=== PATIENT | male | born 1955 | race Caucasian/White ===

== ENCOUNTER → 2016-06-27 | Outpatient (CLI) | payer BC ==
[~2016-06-27] MED LIST: ASPI81TA28 PO; ATOR10TA88 PO; B-COCAP2 PO; CHOL100010 PO; COEN50CA2 PO; ESOM20CA PO; HYDR-5688 PO; LISI-461 PO; MULT-506 PO; NXM/40 PO; OMEG10007 PO; VITACAP37 PO; ZNTT/150 PO
== END | disposition home or self-care (01) ==
LOC: C.RDSM 11:02
PROVIDERS: ATTEND Physical Medicine & Rehabilitation Sports Medicine
DX: M25.521 Pain in right elbow (principal)

== ENCOUNTER → 2016-07-26 | Outpatient (CLI) | payer BC ==
[~2016-07-26] MED LIST changes: +ATOR10TA82 PO; -ATOR10TA88 PO
== END | disposition home or self-care (01) ==
LOC: C.RDSM 12:30
PROVIDERS: ATTEND Physical Medicine & Rehabilitation Sports Medicine
DX: R22.32 Localized swelling, mass and lump, left upper limb (principal)

== ENCOUNTER → 2016-08-09 | Outpatient (CLI) | payer BC ==
[~2016-08-09] MED LIST changes: -B-COCAP2 PO; -CHOL100010 PO; -ESOM20CA PO; -VITACAP37 PO
== END | disposition home or self-care (01) ==
LOC: C.CPL 14:52
PROVIDERS: ATTEND Physician Assistant
DX: G56.21 Lesion of ulnar nerve, right upper limb (principal)

== ENCOUNTER → 2016-08-16 | Outpatient (CLI) | payer BC ==
[2016-08-19 23:32] LABS: IGA SERUM 189 mg/dL (81-463); TIS TRANS IGA 1 U/mL (<4)
== END | disposition home or self-care (01) ==
LOC: C.LAB1850 16:19
PROVIDERS: ATTEND Registered Nurse
DX: K21.9 Gastro-esophageal reflux disease without esophagitis (principal)

== ENCOUNTER → 2016-08-24 | Day surgery (SDC) | payer BC ==
[2016-08-01 11:49] VITALS: Ht 175.3 cm; Wt 88.6 kg
[~2016-08-24] VITALS: Ht 175.3 cm; Wt 88.6 kg
[~2016-08-24] MED LIST changes: +ATROPINE SULFATE 0.1 MG/ML 5ML SYR IV PRN; +BUPIVACAINE/EPINEPHRINE 0.5% MPF 1:200,000 30 ML VIAL ONE; +CEFAZOLIN 2000 MG/60 ML D5W IV SCH; +EpHEDrine SULFATE 50MG/5ML SYR ONE; +EpHEDrine SULFATE INJ 50 MG/ML AMP IV PRN; +FENTANYL CITRATE INJ 50 MCG/1 ML 2 ML VIAL IV PRN; +FENTANYL CITRATE INJ 50 MCG/1 ML 2 ML VIAL ONE; +FLUMAZENIL 0.1 MG/1 ML 10 ML VIAL IV PRN; +HYDROmorphone INJ 2 MG/ML SYR/VIAL IV PRN; +LABETALOL HCL IV 5 MG/ML 20ML IV PRN; +LACTATED RINGER'S 1000ML 1,000 ML IV SCH; +LIDOCAINE HCL 2% 2 ML VIAL (20MG/ML) ONE; +LIDOCAINE/EPINEPHRINE 1% INJ 50 ML VIAL ONE; +MEPERIDINE HCL 25 MG/ML CARP IV PRN; +MIDAZOLAM HCL 1 MG/ML 2ML VIAL ONE; +MoRPHine SULFATE 2 MG/ML CARP IV PRN; +NALOXONE HCL 0.4 MG/1 ML VIAL/CARP IV PRN; +ONDANSETRON INJ 2 MG/ML 2 ML VIAL IV PRN; +ONDANSETRON INJ 2 MG/ML 2 ML VIAL ONE; +OXYCODONE/ACETAMINOPHEN 5-325 TAB PO PRN; +PHENYLEPHRINE 100MCG/ML 5ML SYR IV PRN; +PROPOFOL IV EMULSION 10 MG/ML 20 ML VIAL IV ONE; +SODIUM CHLORIDE 0.9% 1000ML 1,000 ML IV SCH
--- NOTE | 2016-08-24 12:40 | History & Physical Bridge Note ---
H&P Re-Evaluation Bridge Note: I have examined the patient, reviewed the History & Physical and in the interval since the performance of the History & Physical I have noted the following changes of clinical significance: No changes noted
--- NOTE | 2016-08-24 13:44 | Discharge Instructions-SurgCtr ---
Discharge Instructions Date of Service August 24, 2016. Visit Reason for Visit: Right Cubital Tunnel Syndrome Discharge Discharge Diagnosis / Problem: cubital tunnel syndrome right arm Discharge Goals Goal(s): Decrease discomfort, Improve function, Increase independence Activity Recommendations Activity Limitations: per Instructions/Follow-up section Anesthesia . Post Anesthesia Instructions: If you have had General Anesthesia or IV Sedation: * Do not drive today. * Resume driving when surgeon permits. * Do not make important decisions or sign legal documents today. * Call surgeon for: 1. Temperature elevations greater than 101 degrees F. 2. Uncontrollable pain. 3. Excessive bleeding. 4. Persistent nausea and vomiting. 5. Medication intolerance (nausea, vomiting or rash). * For nausea and vomiting use only clear liquids such as: tea, soda, bouillon until nausea subsides, then gradually increase diet as tolerated. * If you have any concerns or questions, call your surgeon's office. If physician is unavailable and it is an emergency, call 911 or go to the nearest emergency room. . Instructions / Follow-Up Instructions / Follow-Up The following are instructions to follow after minor hand surgery. ACTIVITY RECOMMENDATIONS: * Minimize activity until your first visit after surgery. * No excessive walking, jogging, sports or laboring. * Return to activity is individualized. Most patients are able to return to everyday activities within 2 weeks. * Return to sports or intensive labor usually occurs at 1-2 months. * DRIVING: No driving until instructed by physician. * BATHING: You may shower or sponge-bathe immediately after surgery. The dressing will need to be covered with a plastic bag or plastic wrap until the dressing is changed on the fourth or fifth day after surgery. Once the dressing has been changed on the fourth or fifth day after surgery, you may shower and get the incision wet. * Wash with regular soap and water. * Do not bathe (submerge the incision), soak, swim or use a hot tub until the incision is completely healed over with normal skin and the doctor has given the OK to proceed. * There is no need to apply any ointments, powders or salves to your incision. * Do not apply alcohol or hydrogen peroxide directly to the incision. Diluted peroxide (50:50 mixture with sterile saline) may be used to clean dried blood from around the incision area. WORK/SCHOOL: * You may return to sedentary work or school when you are feeling comfortable. This is usually 3-7 days after surgery. * Expect increased discomfort with increased activity. Continue to elevate and ice the hand as much as possible. DIET: * Resume previous diet. MEDICATIONS: * You will have a prescription for pain medication and an anti-inflammatory medication after surgery. Use the pain pills for severe pain and the anti-inflammatory for less severe pain. * Once the pain pills have run out, try to use the anti-inflammatory. If this is not effective then contact the office for assistance. * The pain medication may cause nausea, constipation and sleepiness. You should see how they affect you before driving or similar activity. * The anti-inflammatory may cause stomach upset and bleeding. If this occurs, let your doctor know immediately . * Some patients may need blood clot prevention. This can be done with either a pill or a simple shot. Your doctor will advise you on when to begin these medications and how to take them. * Do not take aspirin or other anti-inflammatory products (i.e. Advil or Aleve ) if taking blood thinner medication. * Take a stool softener like Colace or a stimulant like Senokot to prevent constipation. SPECIAL CARE INSTRUCTIONS: ICE: * Do not apply ice directly to the skin. * Use a thin dressing or stockinet between the skin and ice bag. The dressing in place after surgery will suffice. * Apply ice for 20-30 minutes and repeat every 2-4 hours. This is especially important for the first 3-7 days after surgery. * Once the pain improves, use ice as needed. ELEVATION: * Keep your hand elevated at or above the level of your heart as much as possible. * Expect some increased discomfort and swelling if you allow your hand to hang down for any length of time. DRESSING: * Your dressing will be changed 4-5 days after surgery by the physical therapist or physician's sales and marketing assistant. Leave your dressing intact until this time. * You may then change your dressing daily with clean dry gauze or Band-aids and a soft wrap or stockinet. * Always wash your hands prior to touching the incision area. * Once the stitches are removed, you may leave the wound open to air or cover with a thin bandage. * There is no need to apply any ointments, powders or salves to your incision. * Expect some bloody drainage for the first few days after surgery. * Leave the tape strips in place (if present) for 5-7 days. * The initial dressing after surgery may become soaked with blood or fluid which is normal. You may reinforce your dressing with clean, dry gauze as needed. * Wear sling right arm for comfort. * If you have a splint do not remove splint until your follow up appointment. THERAPY: * Physical therapy may be prescribed after your surgery. * For cubital tunnel surgery you may begin moving your fingers and wrist immediately after surgery as tolerated. * Be careful to not overuse. * Once the sutures are removed, further range of motion exercises can be performed. * Hand incisions may be very sensitive for a few months after surgery so avoid excessive pressure on the incision. If necessary, use a padded weightlifters' glove. * You may massage the incision with skin cream to make it less sensitive and reduce scarring. * Hand strength usually returns with normal use. * If needed, squeezing a soft sponge or Play-dough may help. * Your doctor will recommend physical therapy if necessary. PROBLEMS/QUESTIONS: * If you have any problems such as severe pain, numbness, tingling or high fevers or if you have any questions, please contact the office at [phone]. * It is not uncommon to have some numbness and tingling after the surgery especially if you have had a nerve block done. This should gradually improve over the first 1- 2 days. If this persists longer or worsens then contact the office. FOLLOW UP VISIT: * If not already scheduled, please call the office at to schedule follow-up appointments for approximately 10 days, 6 weeks and 3 months after surgery. You have a physical therapy appointment on 08/28/16 at 10:30 a.m. You have a follow up appointment with Dr. Rocha on 09/08/16 at 10:15 a.m. Diet Recommendations Home Diet: no limitations, resume previous diet Procedures Procedures Performed: Right Ulnar Nerve Subcutaneous Transposition Pending Studies Studies pending at discharge: no Medical Emergencies . Who to Call and When: Medical Emergencies: If at any time you feel your situation is an emergency, please call 911 immediately. . Non-Emergent Contact Non-Emergency issues call your: Surgeon Call Non-Emergent contact if: temperature is above 101, your pain is not controlled, your pain is concerning you, wound has increased drainage, you have any medication questions . . "Provider Documentation" section prepared by Vanessa Rios. . [place] Drug Monitoring Program Search Results: patient reviewed within database, no issues identified
--- NOTE | 2016-08-24 14:03 | [facility] Post Operative Brief Note ---
Immediate Operative Summary Operative Date August 24, 2016. Pre-Operative Diagnosis Right Cubital Tunnel Syndrome Post-Operative Diagnosis same Procedure(s) Performed Right Ulnar Nerve Subcutaneous Transposition Surgeon Dr. Sharan Rocha Hogshead Press Operator Surgeon(s) Dr. Pietro Hamilton Estimated Blood Loss 5 ML Findings tight bands at cubital tunnel Specimens 0 Drains 0 Anesthesia LMA Complication(s) None Disposition Recovery Room / PACU
--- NOTE | 2016-08-24 14:32 | Anesthesia Progress Nt - [facility] ---
Anesthesia Post Op Note Date & Time August 24, 2016 at 14:32 Vital Signs Pain Intensity: 0 Vital Signs Past 12 Hours Date Time Temp Pulse Resp B/P Pulse Ox O2 Delivery O2 Flow Rate FiO2 08/24/16 14:31 36.6 08/24/16 14:28 78 20 08/24/16 14:28 79 20 94 08/24/16 14:27 81 17 98 08/24/16 14:27 79 17 08/24/16 14:26 150/87 08/24/16 14:22 76 14 99 08/24/16 14:22 74 14 08/24/16 14:21 149/82 08/24/16 14:19 78 18 08/24/16 14:19 78 18 98 08/24/16 14:16 143/93 08/24/16 14:14 36.1 89 16 152/98 97 Mask 8 08/24/16 10:01 36.6 81 16 144/91 96 Room Air Notes Mental Status: alert / awake / arousable, participated in evaluation Pt Amnestic to Procedure: Yes Nausea / Vomiting: adequately controlled Pain: adequately controlled Airway Patency, RR, SpO2: stable & adequate BP & HR: stable & adequate Hydration State: stable & adequate Anesthetic Complications: no major complications apparent
[2016-08-24 14:45] VITALS: TEMP 36.4
[2016-08-24 15:16] VITALS: BP 121/76; O2SAT 98
--- NOTE | 2016-08-24 15:19 | [facility] Operative Report ---
Operative Report Operative Date August 24, 2016. Pre-Operative Diagnosis Right Cubital Tunnel Syndrome Post-Operative Diagnosis Right cubital tunnel syndrome Procedure(s) Performed Right submuscular ulnar nerve transposition Surgeon Dr. Sharan [facility] T[facility] Surgeon(s) Pietro Seymour PA-C Estimated Blood Loss 5 ML Findings cubital tunnel syndrome right elbow Specimens 0 Drains 0 Anesthesia LMA Complication(s) None Disposition Recovery Room / PACU (stable) Indications Patient is a 61 year old male with complaints of paresthesias right hand, failed conservative treatment. x-rays normal. EMG/NCS obtained, found to have cubital tunnel syndrome right upper extremity. Surgery recommended. He wished to proceed, risks/complications discussed, informed consent obtained. Description of Procedure Patient was taken to the operating room, given general anesthesia. He was given IV Ancef for surgical prophylaxis. Time out performed, prepped and draped in routine sterile fashion. I was present the entire case, please see Dr. Rocha's operative report for further detail. I attest to the content of the Intraoperative Record and any orders documented therein. Any exceptions are noted below.
--- NOTE | 2016-08-24 15:55 | OPERATIVE REPORT ---
DATE OF OPERATION: 08/24/2016 PREOPERATIVE DIAGNOSIS: Right cubital tunnel syndrome. POSTOPERATIVE DIAGNOSIS: Same. PROCEDURE: Subcutaneous transposition of the right ulnar nerve. SURGEON: Vasyl Rocha MD ADMINISTRATIVE EXECUTIVE: Fito Keenan MD ANESTHESIA: Laryngeal mask. INDICATIONS OF PROCEDURE: The patient is a 61-year-old male with signs and symptoms of cubital tunnel syndrome refractory to nonsurgical methods of management and he has elected to proceed with operative intervention. PROCEDURE IN DETAIL: Informed consent was obtained. The patient identified as Tate Childs. He identified the operative site as the right elbow. I marked it with my initials. A preop surgical time-out was performed. A preop dose of IV antibiotics was given. He was positioned supine on the OR table with the right arm on a hand table. Tourniquet was applied to the right upper arm. The limb was prepped and draped in usual sterile fashion. DVT prophylaxis will be done with early mobility and intraoperatively with foot pumps. The examination under anesthesia revealed full range of motion except for 10-15 degree loss of terminal elbow extension. The right arm was prepped and draped in usual sterile fashion. The limb was exsanguinated with the Esmarch, tourniquet inflated to 225 mmHg. Approximate 12-15 cm incision was made just posterior to the medial epicondyle and centered over it. This skin was sharply incised. Blunt dissection was utilized down to subcutaneous tissue. A large branch of the medial antebrachial cutaneous nerve was identified and protected. The ulnar nerve was identified and dissected free throughout its course. There were several tight adhesive bands over the cubital tunnel. There were no constrictions of the nerve. The vessels were transposed with the nerve. The motor branches distal to the epicondyle were identified and preserved. There was no entrapment proximally for a distance of at least 10-12 cm by digital palpation. The medial intermuscular septum was excised. The nerve was then transposed anteriorly and a fascial flap was created and sewn in place with 2-0 Vicryl sutures taking care to avoid the cutaneous nerves. The elbow showed full range of motion without any kinking or subluxation of the nerve. A relaxing incision was made over the ulnar head of the FCU tendon to prevent any pinching of the nerve. The nerve was dissected out between the two heads of the flexor carpi ulnaris releasing band of tissue present in this location. The tourniquet was let down, meticulous hemostasis was performed. Tourniquet time was approximately 45 minutes. The elbow was irrigated with sterile saline and then closed with 3-0 Vicryl and a 3-0 Prolene subcuticular stitch. A soft sterile, nonadherent dressing was applied followed by a full length Georges wrap and an arm sling. The patient was then awakened from anesthesia without difficulty and taken to recovery room in stable condition. There were no specimens or complications. Counts were correct at the end of case. Blood loss was minimal. At the conclusion of the operation, I spoke to patient's friend by phone and informed them of my findings. Postoperative instructions were given. He will be rehabilitated according to the standard postop plan. The ulnar nerve looked normal. I attest to the content of the Intraoperative Record and any orders documented therein. Any exceptio ns are noted below.
== END | disposition home or self-care (01) ==
LOC: X.SURG 09:44
PROVIDERS: ATTEND Physical Medicine & Rehabilitation Sports Medicine
DX: G56.21 Lesion of ulnar nerve, right upper limb (principal); I10 Essential (primary) hypertension; M19.90 Unspecified osteoarthritis, unspecified site; E78.5 Hyperlipidemia, unspecified; M06.9 Rheumatoid arthritis, unspecified; Z87.442 Personal history of urinary calculi; Z79.82 Long term (current) use of aspirin; Z79.899 Other long term (current) drug therapy; Z68.28 Body mass index [BMI] 28.0-28.9, adult

== ENCOUNTER → 2016-10-02 | Outpatient (CLI) | payer BC ==
[~2016-10-02] MED LIST changes: -ATROPINE SULFATE 0.1 MG/ML 5ML SYR IV PRN; -BUPIVACAINE/EPINEPHRINE 0.5% MPF 1:200,000 30 ML VIAL ONE; -CEFAZOLIN 2000 MG/60 ML D5W IV SCH; -EpHEDrine SULFATE 50MG/5ML SYR ONE; -EpHEDrine SULFATE INJ 50 MG/ML AMP IV PRN; -FENTANYL CITRATE INJ 50 MCG/1 ML 2 ML VIAL IV PRN; -FENTANYL CITRATE INJ 50 MCG/1 ML 2 ML VIAL ONE; -FLUMAZENIL 0.1 MG/1 ML 10 ML VIAL IV PRN; -HYDROmorphone INJ 2 MG/ML SYR/VIAL IV PRN; -LABETALOL HCL IV 5 MG/ML 20ML IV PRN; -LACTATED RINGER'S 1000ML 1,000 ML IV SCH; -LIDOCAINE HCL 2% 2 ML VIAL (20MG/ML) ONE; -LIDOCAINE/EPINEPHRINE 1% INJ 50 ML VIAL ONE; -MEPERIDINE HCL 25 MG/ML CARP IV PRN; -MIDAZOLAM HCL 1 MG/ML 2ML VIAL ONE; -MoRPHine SULFATE 2 MG/ML CARP IV PRN; -NALOXONE HCL 0.4 MG/1 ML VIAL/CARP IV PRN; -ONDANSETRON INJ 2 MG/ML 2 ML VIAL IV PRN; -ONDANSETRON INJ 2 MG/ML 2 ML VIAL ONE; -OXYCODONE/ACETAMINOPHEN 5-325 TAB PO PRN; -PHENYLEPHRINE 100MCG/ML 5ML SYR IV PRN; -PROPOFOL IV EMULSION 10 MG/ML 20 ML VIAL IV ONE; +SINCALIDE INJ 1.7 MCG in SODIUM CHLORIDE 0.9% 100ML 100 ML IV ONE; -SODIUM CHLORIDE 0.9% 1000ML 1,000 ML IV SCH
--- NOTE | 2016-10-02 10:41 | DIAGNOSTIC IMAGING REPORT ---
NUCLEAR HEPATOBILIARY SCAN WITH EJECTION FRACTION IMAGING CLINICAL HISTORY: Right upper quadrant abdominal pain. COMPARISON STUDY: Abdominal ultrasound dated 06/01/2014. TECHNIQUE: Dynamic images of the liver and anterior abdomen were obtained every 5 minutes for a total of 60 minutes following the IV administration of 5.6mCi of technetium 99m Choletec. 1.7 mcg of sincalide was then injected with additional images acquired every 5 minutes for 45 minutes to calculate the gallbladder ejection fraction. FINDINGS: The hepatobiliary scan shows prompt and homogeneous hepatic uptake. There is visualized activity within the intra and extrahepatic biliary tree at 10 minutes, and within the gallbladder at 15 minutes. The biliary to bowel transit time measures 85 minutes. On the sincalide imaging, the gallbladder ejection fraction was measured at 32%. IMPRESSION: 1. Unremarkable nuclear hepatobiliary scan. There is no scintigraphic evidence of cholecystitis. 2. The gallbladder ejection fraction measured 32%. This is low normal to slightly diminished and may represent biliary dysfunction (normal is considered 35% or greater). Clinical correlation will be required. Electronically signed by: Jorge Eckert M.D. 10/02/2016 10:40 AM Dictated Date/Time: 10/02/2016 10:37 AM
== END | disposition home or self-care (01) ==
LOC: C.NUCL 07:50
PROVIDERS: ATTEND Registered Nurse
DX: K21.9 Gastro-esophageal reflux disease without esophagitis (principal); R10.13 Epigastric pain; M79.641 Pain in right hand; M79.642 Pain in left hand

== ENCOUNTER → 2016-10-02 | Outpatient (CLI) | payer BC ==
[~2016-10-02] MED LIST changes: -SINCALIDE INJ 1.7 MCG in SODIUM CHLORIDE 0.9% 100ML 100 ML IV ONE
[2016-10-02 14:34] LABS: CALCIUM 9.2 mg/dl (8.5-10.1)
[2016-10-02 14:39] LABS: ALT/SGPT 31 U/L (12-78); AST/SGOT 25 U/L (15-37); BLOOD UREA NITROGEN 12 mg/dl (7-18); BUN/CREATININE RATIO 14.7 (10-20); CARBON DIOXIDE 27 mmol/L (21-32); CHLORIDE 104 mmol/L (98-107); CREATININE 0.79 mg/dl (0.60-1.40); GLUCOSE 73 mg/dl (70-99); POTASSIUM 4.2 mmol/L (3.5-5.1); SODIUM 139 mmol/L (136-145)
[2016-10-02 14:42] LABS: ALB/GLOB RATIO 1.1 (0.9-2); ALKALINE PHOSPHATASE 64 U/L (45-117); CHOLESTEROL 150 mg/dl (0-200); CHOLESTEROL/HDL RATIO 2.1; HDL CHOLESTEROL 71 mg/dl; LDL CHOLESTEROL CALCULATED 72 mg/dl; TRIGLYCERIDES 34 mg/dl (0-150); VERY LOW DENSITY LIPOPROT CALC 7 mg/dl
[2016-10-02 15:01] LABS: RHEUMATOID FACTOR 41.8 U/mL (0-15)
== END | disposition home or self-care (01) ==
LOC: C.LABSPEC 13:49
PROVIDERS: ATTEND Family Medicine
DX: M79.641 Pain in right hand (principal); M79.642 Pain in left hand